=== PATIENT | male | born 1960 | race Asian ===

== ENCOUNTER 2019-05-22 14:22 | Emergency (ER) | payer OTHER ==
[~2019-05-22] VITALS: Ht 167.6 cm; Wt 79.4 kg
[2019-05-22 14:22] VITALS: BP_SYST 136
[2019-05-22] MEDS ORDERED: KETOROLAC TROMETHAMINE 60 MG/2 ML VIAL IM ONE (14:45)
[2019-05-22] MEDS ORDERED: BACITRACIN 1 GM OINT TP ONE (14:59)
[2019-05-22 15:30] VITALS: BP_SYST 136
== END 2019-05-22 15:30 | disposition home or self-care (01) ==
LOC: SED 14:22
DX: S61.452A Open bite of left hand, initial encounter (principal); S39.012A Strain of muscle, fascia and tendon of lower back, initial encounter; W54.0XXA Bitten by dog, initial encounter; Y93.89 Activity, other specified; Y92.89 Other specified places as the place of occurrence of the external cause; Y99.8 Other external cause status
CPT/HCPCS: 72100; 96372; 99283; J1885